=== PATIENT | female | born 1970 | race Caucasian/White ===

== ENCOUNTER 2018-11-19 12:54 | Outpatient (CLI) | payer OTHER ==
--- NOTE | 2018-11-22 00:15 | Ultrasound Report ---
Reason: DYSFUNCTIONAL UTERINE BLEEDING Procedure Date: 11/19/2018 Accession Number: [id number] / [id number] Procedure: US - Pelvic w/Transvaginal CPT Code: FULL RESULT: EXAM: PELVIC ULTRASOUND EXAM DATE: 11/19/2018 01:46 PM. CLINICAL HISTORY: Dysfunctional uterine bleeding. COMPARISON: None. TECHNIQUE: Realtime transabdominal pelvic scan performed to identify the uterus and adnexa and as an overview of other pelvic structures, followed by transvaginal scan to provide greater detail of the uterus and adnexa, with static image documentation. FINDINGS: Uterus: 8.2 cm, volume 127.4 cc. Retroverted and retroflexed position. Normal overall size and echotexture. Masses: None. Endometrium: 8.2 mm. No abnormal flow, mass or polyp. Cervix: Multiple nabothian cysts are noted. No mass. Right Ovary: 2.9 x 2.3 x 2 cm, volume 7 cc. Normal echotexture and blood flow. 1.7 cm anechoic right ovarian cyst. No wall irregularities, mural nodules or thickened septations. Left Ovary: 2.1 x 1.8 x 2.1 cm, volume 4.2 cc. Normal echotexture and blood flow. Free Fluid: None. Other: None. IMPRESSION: 1. 1.7 cm simple right ovarian cyst. Otherwise, both ovaries and adnexa are normal. 2. Endometrium measures up to 0.8 cm. No endometrial mass or polyp. 3. No uterine fibroids. RADIA
== END 2018-11-19 12:55 | disposition home or self-care (01) ==
LOC: DI 12:54
PROVIDERS: ATTEND Physician Assistant
DX: N83.291 Other ovarian cyst, right side (principal)
CPT/HCPCS: 76830; 76856

== ENCOUNTER 2019-01-05 14:22 | Outpatient (CLI) | payer OTHER ==
--- NOTE | 2019-01-06 15:30 | XRAY Report ---
Reason: CHEST PAIN, L SHOULDER NECK PAIN Procedure Date: 01/05/2019 Accession Number: [id number] / [id number] Procedure: XRS - Cervical Spine 2 View CPT Code: FULL RESULT: EXAM: CERVICAL SPINE RADIOGRAPHY EXAM DATE: 01/05/2019 03:04 PM. CLINICAL HISTORY: CHEST PAIN, L SHOULDER AND NECK PAIN. COMPARISONS: None. TECHNIQUE: 3 views. FINDINGS: Alignment: 1-2 mm anterolisthesis C3 on C4 and 2-3 mm anterolisthesis C4 on C5. Questionable anterior listhesis C7 on T1. Bones: The cervical vertebral bodies and posterior elements are well seen from the skull base through C7-T1. No fractures or bone lesions. Disks: Mild disk space narrowing C5-C6 and C7-T1. Disk heights are otherwise maintained. Facets: No degenerative disease. Soft Tissues: No prevertebral soft tissue swelling. IMPRESSION: Early degenerative changes cervical spine without superimposed acute findings. RADIA
--- NOTE | 2019-01-06 16:54 | XRAY Report ---
Reason: CHEST PAIN, L SHOULDER NECK PAIN Procedure Date: 01/05/2019 Accession Number: [id number] / [id number] Procedure: XRS - Chest 2 View X-Ray CPT Code: 67521 FULL RESULT: EXAM: CHEST RADIOGRAPHY EXAM DATE: 01/05/2019 03:04 PM. CLINICAL HISTORY: CHEST PAIN, L SHOULDER NECK PAIN. COMPARISON: None. TECHNIQUE: 2 views. FINDINGS: Lungs/Pleura: No focal opacities evident. No pleural effusion. No pneumothorax. Normal volumes. Mediastinum: Heart and mediastinal contours are unremarkable. Other: Unremarkable bony structures. IMPRESSION: Clear lungs. No acute findings. RADIA
--- NOTE | 2019-01-07 14:27 | XRAY Report ---
Reason: CHEST PAIN, L SHOULDER NECK PAIN Procedure Date: 01/05/2019 Accession Number: [id number] / [id number] Procedure: XRS - Shoulder 3 View LT CPT Code: FULL RESULT: EXAM: LEFT SHOULDER RADIOGRAPHY EXAM DATE: 01/05/2019 03:04 PM. CLINICAL HISTORY: Left shoulder pain for 1 month. Neck pain. COMPARISON: CHEST 2 VIEW 01/05/2019 3:02 PM. TECHNIQUE: 3 views. FINDINGS: Bones: Normal. No fracture or bone lesion. Joints: The glenohumeral and acromioclavicular joints are normal. Soft tissues: The visualized hemithorax is unremarkable. No soft tissue calcification. IMPRESSION: Normal shoulder radiography. RADIA
== END 2019-01-05 14:23 | disposition home or self-care (01) ==
LOC: DI.S 14:22
PROVIDERS: ATTEND Physician Assistant
DX: M50.322 Other cervical disc degeneration at C5-C6 level (principal); M25.512 Pain in left shoulder; R07.9 Chest pain, unspecified
CPT/HCPCS: 71046; 72040

== ENCOUNTER 2019-01-06 11:08 | Outpatient (CLI) | payer OTHER ==
[2019-01-06 17:18] LABS: BASOPHILS % (AUTO) 0.9 %; EOSINOPHILS # (AUTO) 0.1 10^3/uL (0.0-0.7); EOSINOPHILS % (AUTO) 1.4 %; HGB - HEMOGLOBIN 11.2 g/dL (12.0-16.0); LYMPHOCYTES # (AUTO) 1.6 10^3/uL (1.5-3.5); LYMPHOCYTES % (AUTO) 36.2 %; MEAN CORPUSCULAR HEMOGLOBIN 25.7 pg (27.0-31.0); MEAN CORPUSCULAR HGB CONC 29.9 g/dL (32.0-36.0); MEAN PLATELET VOLUME 10.9 fL (7.9-10.8); MONOCYTES # (AUTO) 0.4 10^3/uL (0.0-1.0); MONOCYTES % (AUTO) 9.7 %; NEUTROPHILS # (AUTO) 2.2 10^3/uL (1.5-6.6); NEUTROPHILS % (AUTO) 51.6 %; PLT - PLATELET COUNT 279 10^3/uL (130-450); RED BLOOD COUNT 4.35 10^6/uL (4.20-5.40); RED CELL DISTRIBUTION WIDTH 15.4 % (12.0-15.0); WHITE BLOOD COUNT 4.3 x10^3/uL (4.8-10.8)
[2019-01-06 17:39] LABS: ALBUMIN 4.7 g/dL (3.2-5.5); ALBUMIN/GLOBULIN RATIO 1.6 (1.0-2.2); ALKALINE PHOSPHATASE 65 IU/L (42-121); ALT ALANINE AMINOTRANSFERASE 13 IU/L (10-60); AST ASPARTATE AMINOTRANSFERASE 19 IU/L (10-42); BILIRUBIN,TOTAL 0.7 mg/dL (0.2-1.0); BUN - BLOOD UREA NITROGEN 13 mg/dL (6-20); CALCIUM 9.1 mg/dL (8.5-10.3); CARBON DIOXIDE - CO2 26 mmol/L (21-32); CHLORIDE 99 mmol/L (101-111); CHOL/HDL RATIO 2.7 (<4.4); CHOLESTEROL 203 mg/dL; CREATININE 0.7 mg/dL (0.4-1.0); GFR - MDRD 89 (>89); GLUCOSE 94 mg/dL (70-100); HDL CHOLESTEROL 76 mg/dL; LDL CHOLESTEROL,CALCULATED 114 mg/dL; LDL/HDL RATIO 1.5 (<4.4); SODIUM 136 mmol/L (135-145); TOTAL PROTEIN 7.7 g/dL (6.7-8.2); VLDL CHOLESTEROL 13 mg/dL
== END 2019-01-06 11:09 | disposition home or self-care (01) ==
LOC: LAB.S 11:08
PROVIDERS: ATTEND Physician Assistant
DX: Z13.6 Encounter for screening for cardiovascular disorders (principal); R53.83 Other fatigue
CPT/HCPCS: 36415; 80053; 80061; 83721; 84443; 85025

== ENCOUNTER 2019-08-22 11:16 | Outpatient (CLI) | payer OTHER ==
--- NOTE | 2019-08-22 13:44 | Ultrasound Report ---
Reason: MENORRHAGIA Procedure Date: 08/22/2019 Accession Number: [id number] / [id number] Procedure: US - Pelvic w/Transvaginal CPT Code: Final Report FULL RESULT: EXAM: PELVIC ULTRASOUND EXAM DATE: 08/22/2019 12:29 PM. CLINICAL HISTORY: MENORRHAGIA. Dated LMP 08/02/2019, reported perimenopausal status. COMPARISON: PELVIC W/TRANSVAGINAL 11/19/2018 1:04 PM. TECHNIQUE: Realtime transabdominal pelvic scan performed to identify the uterus and adnexa and as an overview of other pelvic structures, followed by transvaginal scan to provide greater detail of the uterus and adnexa, with static image documentation. FINDINGS: Uterus: 10.2 x 5.7 x 6.5 cm, volume 198 cc, previously measured at 127 cc. Anteverted position. Normal overall size and echotexture. Masses: None. Endometrium: 9 mm. No focal lesion evident. Cervix: Multiple nabothian cysts. Right Ovary: 1.5 x 2.3 x 1.7 cm, volume 3.0 cc. Normal echotexture and blood flow. Left Ovary: 1.6 x 2.4 x 3.3 cm, volume 6.6 cc. Normal echotexture and blood flow. Several follicles/cysts measuring up to 1.4 cm. Exophytic follicle/cyst versus paraovarian cyst measuring 1.4 cm. Free Fluid: None. Other: None. IMPRESSION: 1. No focal endometrial abnormality. Endometrial thickness is in the normal range assuming premenopausal status but would be above the normal range if the patient is postmenopausal. Sonohysterography/pelvic MR could be considered for further imaging evaluation if clinically warranted. Consider correlation with endometrial tissue sampling. 2. Small left ovarian cysts, clinically inconsequential finding. No imaging follow-up recommended per SRU consensus guidelines. RADIA
== END 2019-08-22 11:17 | disposition home or self-care (01) ==
LOC: DI 11:16
PROVIDERS: ATTEND Obstetrics & Gynecology
DX: N83.202 Unspecified ovarian cyst, left side (principal); N92.4 Excessive bleeding in the premenopausal period
CPT/HCPCS: 76830; 76856

== ENCOUNTER 2019-12-09 08:30 | Day surgery (SDC) | payer OTHER ==
[2019-12-09] MEDS ORDERED: LACTATED RINGERS 1,000 ML IV ONE ×2 (08:40→10:35)
[2019-12-09 08:50] LABS: HCG UR QUAL NEGATIVE
[2019-12-09] MEDS ORDERED: fentaNYL 250 MCG/5 ML VIAL IVP ONE (10:00)
[2019-12-09] MEDS ORDERED: MIDAZOLAM 2 MG/2 ML VIAL IVP ONE (10:00)
[2019-12-09] MEDS ORDERED: SIMETHICONE 40 MG/0.6 ML 30 ML BOTTLE ONE (10:28)
[2019-12-09 11:19] VITALS: BP 101/76
== END 2019-12-09 08:31 | disposition home or self-care (01) ==
LOC: SDS 08:30
PROVIDERS: ATTEND Surgery
DX: Z12.11 Encounter for screening for malignant neoplasm of colon (principal)
CPT/HCPCS: 45378; 81025; A9270; J3010; J7120

== ENCOUNTER 2019-12-21 15:45 | Outpatient (CLI) | payer OTHER ==
--- NOTE | 2019-12-22 12:08 | Mammography Report ---
BILATERAL DIGITAL SCREENING MAMMOGRAM 3D/2D: 12/21/2019 CLINICAL: Routine screening. Comparison is made to exam dated: 05/10/2015 mammogram - [facility]. There are sca ttered fibroglandular elements in both breasts. No significant masses, calcifications, or other findings are seen in either breast. There has been no significant interval change. IMPRESSION: NEGATIVE There is no mammographic evidence of malignancy. A 1 year screening mammogram is recommended. This exam was interpreted at Station ID: [id number]. NOTE: For mammograms, a report in lay terms will be sent to the patient. Approximately 15% of breast malignancies will not be visualized mammographically. In the management of a palpable breast mass, a negative mammogram must not discourage biopsy of a clinically suspicious lesion. Electronically Signed By: Maria L watkins/[email or web address]:12/21/2019 16:44:19 ACR BI-RADS Category 1: Negative 3341F PARENCHYMAL PATTERN: (A) - The breast(s) demonstrate(s) scattered fibroglandular densities. BI-RADS CATEGORY: (1) - 1 RECOMMENDATION: (ANNUAL) - Recommend routine annual screening mammography. [id number] 1 year screening LATERALITY: (B)
== END 2019-12-21 15:46 | disposition home or self-care (01) ==
LOC: DI 15:45
PROVIDERS: ATTEND Obstetrics & Gynecology
DX: Z12.31 Encounter for screening mammogram for malignant neoplasm of breast (principal)
CPT/HCPCS: 77063; 77067

== ENCOUNTER 2021-10-01 08:04 | Outpatient (CLI) | payer OTHER ==
[2021-10-01 14:14] LABS: BASOPHILS % (AUTO) 0.8 %; EOSINOPHILS # (AUTO) 0.1 10^3/uL (0.0-0.7); EOSINOPHILS % (AUTO) 2.9 %; HCT - HEMATOCRIT 41.3 % (37.0-47.0); HGB - HEMOGLOBIN 13.4 g/dL (12.0-16.0); LYMPHOCYTES # (AUTO) 1.2 10^3/uL (1.5-3.5); LYMPHOCYTES % (AUTO) 32.2 %; MEAN CORPUSCULAR HEMOGLOBIN 29.8 pg (27.0-31.0); MEAN CORPUSCULAR HGB CONC 32.4 g/dL (32.0-36.0); MEAN PLATELET VOLUME 9.8 fL (7.9-10.8); MONOCYTES # (AUTO) 0.4 10^3/uL (0.0-1.0); MONOCYTES % (AUTO) 10.6 %; NEUTROPHILS % (AUTO) 53.5 %; PLT - PLATELET COUNT 235 10^3/uL (130-450); RED BLOOD COUNT 4.49 10^6/uL (4.20-5.40); RED CELL DISTRIBUTION WIDTH 12.9 % (12.0-15.0); WHITE BLOOD COUNT 3.8 x10^3/uL (4.8-10.8)
[2021-10-01 14:45] LABS: ALBUMIN 4.3 g/dL (3.2-5.5); ALBUMIN/GLOBULIN RATIO 1.5 (1.0-2.2); ALKALINE PHOSPHATASE 79 IU/L (42-121); ALT ALANINE AMINOTRANSFERASE 16 IU/L (10-60); AST ASPARTATE AMINOTRANSFERASE 19 IU/L (10-42); BILIRUBIN,TOTAL 0.9 mg/dL (0.2-1.0); BUN - BLOOD UREA NITROGEN 12 mg/dL (6-20); CALCIUM 9.1 mg/dL (8.5-10.3); CARBON DIOXIDE - CO2 28 mmol/L (21-32); CHLORIDE 102 mmol/L (101-111); CHOL/HDL RATIO 2.9 (<4.4); CHOLESTEROL 194 mg/dL; CREATININE 0.7 mg/dL (0.4-1.0); GFR - MDRD 88 (>89); GLUCOSE 98 mg/dL (70-100); HDL CHOLESTEROL 68 mg/dL; LDL CHOLESTEROL,CALCULATED 112 mg/dL; LDL/HDL RATIO 1.6 (<4.4); SODIUM 138 mmol/L (135-145); TOTAL PROTEIN 7.2 g/dL (6.7-8.2); TRIGLYCERIDES 68 mg/dL; VLDL CHOLESTEROL 14 mg/dL
[2021-10-02 06:09] LABS: HCV AB <0.1 s/co ratio (0.0-0.9)
== END 2021-10-01 08:05 | disposition home or self-care (01) ==
LOC: LAB.S 08:04
PROVIDERS: ATTEND Nurse Practitioner Family
DX: D64.9 Anemia, unspecified (principal); R23.2 Flushing; Z13.1 Encounter for screening for diabetes mellitus; Z11.59 Encounter for screening for other viral diseases
CPT/HCPCS: 36415; 80053; 80061; 83721; 84443; 85025; 86803

== ENCOUNTER 2021-12-10 09:43 | Outpatient (CLI) | payer OTHER ==
--- NOTE | 2021-12-20 10:35 | Mammography Report ---
BILATERAL DIGITAL SCREENING MAMMOGRAM 3D/2D: 12/10/2021 CLINICAL: Routine screening. Comparison is made to exams dated: 12/21/2019 mammogram and 05/10/2015 mammogram - [facility]. There are scattered areas of fibroglandular density in both breasts (category b / 25%-50% glandular t issue). No significant masses, calcifications, or other findings are seen in either breast. There has been no significant interval change. IMPRESSION: NEGATIVE There is no mammographic evidence of malignancy. A 1 year screening mammogram is recommended. Based on the Tyrer Cuzick model (a risk assessment model) the patients lifetime risk is 9.4% and her 10 year risk is 2.5%. According to the ACR, ACS, and NCCN guidelines, an annual breast MRI exam paul g with mammogram is recommended if the patients lifetime risk is 20% or greater. This exam was interpreted at Station ID: [id number]. NOTE: For mammograms, a report in lay terms will be sent to the patient. Approximately 15% of breast malignancies will not be visualized mammographically. In the management of a palpable breast mass, a negative mammogram must not discourage biopsy of a clinically suspicious lesion. Electronically Signed By: Osorio Das M.D., jr/xiomara:12/19/2021 11:18:19 ACR BI-RADS Category 1: Negative 3341F PARENCHYMAL PATTERN: (A) - The breast(s) demonstrate(s) scattered fibroglandular densities. BI-RADS CATEGORY: (1) - 1 RECOMMENDATION: (ANNUAL) - Recommend routine annual screening mammography. [id number] 1 year screening LATERALITY: (B)
== END 2021-12-10 09:44 | disposition home or self-care (01) ==
LOC: DI.S 09:43
PROVIDERS: ATTEND Nurse Practitioner Family
DX: Z12.31 Encounter for screening mammogram for malignant neoplasm of breast (principal)

== ENCOUNTER 2022-01-15 14:19 | Outpatient (CLI) | payer OTHER ==
[2022-01-15 19:48] LABS: BASOPHILS # (AUTO) 0.1 10^3/uL (0.0-0.1); BASOPHILS % (AUTO) 1.1 %; EOSINOPHILS # (AUTO) 0.1 10^3/uL (0.0-0.7); EOSINOPHILS % (AUTO) 1.3 %; HCT - HEMATOCRIT 41.3 % (37.0-47.0); HGB - HEMOGLOBIN 13.7 g/dL (12.0-16.0); LYMPHOCYTES # (AUTO) 1.7 10^3/uL (1.5-3.5); LYMPHOCYTES % (AUTO) 38.2 %; MEAN CORPUSCULAR HEMOGLOBIN 30.5 pg (27.0-31.0); MEAN CORPUSCULAR HGB CONC 33.2 g/dL (32.0-36.0); MEAN PLATELET VOLUME 9.9 fL (7.9-10.8); MONOCYTES # (AUTO) 0.4 10^3/uL (0.0-1.0); MONOCYTES % (AUTO) 8.7 %; NEUTROPHILS # (AUTO) 2.3 10^3/uL (1.5-6.6); NEUTROPHILS % (AUTO) 50.5 %; PLT - PLATELET COUNT 244 10^3/uL (130-450); RED BLOOD COUNT 4.49 10^6/uL (4.20-5.40); RED CELL DISTRIBUTION WIDTH 12.5 % (12.0-15.0); WHITE BLOOD COUNT 4.5 x10^3/uL (4.8-10.8)
== END 2022-01-15 14:20 | disposition home or self-care (01) ==
LOC: LAB.S 14:19
PROVIDERS: ATTEND Nurse Practitioner Family
DX: D72.819 Decreased white blood cell count, unspecified (principal)
CPT/HCPCS: 36415; 85025

== ENCOUNTER 2023-12-22 11:39 | Emergency (ER) | payer OTHER ==
--- NOTE | 2023-12-22 13:30 | ED Physician Documentation ---
PD HPI LOWER EXT INJURY - Stated complaint Stated Complaint: LT LEG INJ - Chief complaint Chief Complaint: Ext Problem - History obtained from History obtained from: Patient - History of Present Illness PD HPI LOW EXT INJURY LOCATION: Left, Calf Type of injury: No: Fall, Twist (she was going to play tennis and was just jumping slightly as warmup and felt abrupt pain and pop feeling in medial left mid calf. Pain with walking, to point of limping, with toe walking to not stretch calf.) Where injury occurred: [place] Timing - onset: Today Timing - details: Abrupt onset, Still present Worsened by: Moving, Palpating, Other (plantarflexion) Associated symptoms: No: Weakness, Numbness Contributing factors: Other (is not on antibiotics, statins, steroids.). No: Anticoagulated Similar symptoms before: Has not had sx before PD PAST MEDICAL HISTORY - Past Medical History Cardiovascular: None Respiratory: None GI: None : None HEENT: Chronic vision loss, Chronic hearing loss Psych: None Musculoskeletal: None Derm: None - Present Medications Home Medications: Ambulatory Orders Medication Instructions Recorded Confirmed No Known Home Medications 12/08/19 12/08/19 - Allergies Allergies/Adverse Reactions: Allergies Allergy/AdvReac Type Severity Reaction Status Date / Time Sulfa (Sulfonamide Allergy Rash Verified 12/22/23 11:59 Antibiotics) - Social History Does the pt smoke?: No Smoking Status: Never smoker - Immunizations Immunizations are current?: Yes PD ED PE NORMAL - Vitals Vital signs reviewed: Yes - General General: Alert and oriented X 3, Well developed/nourished - Derm Derm: Normal color, Warm and dry - Extremities Extremities: Other (tender with some softness in muscular contour along mid to upper medial left calf c/w torn small muscle bundle. Lower calf and Achilles normal to palpation and no pain.) - Neuro Neuro: Alert and oriented X 3, No motor deficit Results - Vitals Vitals: Vital Signs - 24 hr 12/22/23 12/22/23 12/22/23 11:59 14:20 15:16 Temperature 36.3 C L 36.8 C Heart Rate 73 72 72 Respiratory 16 16 16 Rate Blood Pressure 148/91 H 139/85 H 132/84 H O2 Saturation 98 98 100 Oxygen O2 Source Room air PD Medical Decision Making - ED course Complexity details: reviewed results (I did not feel imagin was needed as dx clinically apparent. ), considered differential (light jumping warming up for tennis and felt pop/pain medial mid left calf. No pain at achilles. She is not on recent antibiotics, does not take statins, no steroids nor autoimmune dz. Just bad luck. ), d/w patient Departure - Departure Disposition: 01 Home, Self Care Clinical Impression: Gastrocnemius muscle tear Condition: Stable Record reviewed to determine appropriate education?: Yes Instructions: ED Strain Muscle Ext Follow-Up: ERIN PAN ARNP [Primary Care Provider] - [facility] [Provider Group] Comments: This would feel like a tear of a small bundle of the gastrocnemius muscle. It does not seem to be affecting the tendon portion (Achilles) and as such typically will heal up well with just conservative treatment of less stress and use on the muscle, which is particularly downward flexion of the ankle (tippy toes) but also the pushoff portion of walking. Typically this does not need a cast or boot per se but just less pressure and activity. We provided you crutches to use for partial to no weightbearing initially and progressing as tolerated. From there no jumping running or prolonged walking for a week or 2 likely and sometimes these will even take a month or so to really resolve well. Recheck or follow-up with Ortho if not improving readily over the next week or 2 as sometimes it can be supported more with a walking boot or such but commonly that is just more annoying. You can use a Jass wrap or compressive sock to help reduce some of the swelling that is likely to develop and the calf and lower leg. It would not be unusual to develop some bruising and a little swelling in the lower portion of the leg and ankle from some bleeding that happens from the muscle. This may show up in a few days. If this gets better sooner than all this then that would be great but expect more likely a couple of weeks to a month to be back to regular activity. Anti-inflammatory such as ibuprofen or naproxen regularly for the next few days. Add Tylenol if needed. Forms: PCP List Discharge Date/Time: 12/22/23 14:16
[2023-12-22 15:18] VITALS: BP 132/84; O2SAT 100
== END 2023-12-22 14:16 | disposition home or self-care (01) ==
LOC: ED 11:39
DX: S86.812A Strain of other muscle(s) and tendon(s) at lower leg level, left leg, initial encounter (principal); X50.1XXA Overexertion from prolonged static or awkward postures, initial encounter; Y93.73 Activity, racquet and hand sports; Y92.830 Public park as the place of occurrence of the external cause
CPT/HCPCS: 99283